=== PATIENT | male | born 1985 | race Caucasian/White ===

== ENCOUNTER → 2020-11-14 | Outpatient (CLI) | payer OTHER | LOC: HEART CORB 11:00 | DX: I10 Essential (primary) hypertension (principal); I49.9 Cardiac arrhythmia, unspecified; R00.2 Palpitations; I08.1 Rheumatic disorders of both mitral and tricuspid valves | CPT/HCPCS: 93306 ==

== ENCOUNTER → 2021-01-02 | Outpatient (CLI) | payer OTHER | LOC: HEART CORB 11:55 | DX: R07.2 Precordial pain (principal); R00.2 Palpitations; R00.0 Tachycardia, unspecified; F41.9 Anxiety disorder, unspecified; Z98.890 Other specified postprocedural states; Z86.79 Personal history of other diseases of the circulatory system; R94.39 Abnormal result of other cardiovascular function study ==